=== PATIENT | female | born 1965 | race Caucasian/White ===

== ENCOUNTER 2017-07-21 16:44 | Observation (INO) | payer MEDICAID ==
[~2017-07-21] VITALS: Ht 152.4 cm; Wt 71.0 kg
[~2017-07-21 16:44] MED LIST: LISI40TA4 PO
[2017-07-21] MEDS ORDERED: LORazepam 2 mg/ml vial IV ONE (18:00)
[2017-07-21 18:16] LABS: ALANINE AMINOTRANSFERASE 36 U/L (12-78); ALBUMIN/GLOBULIN RATIO 1.2 (1.1-1.5); ALKALINE PHOSPHATASE 81 IU/L (46-116); ANION GAP 11 (8-16); ASPARTATE AMINO TRANSFERASE 19 U/L (10-37); BILIRUBIN,TOTAL 0.5 MG/DL (0.1-1.0); BLOOD UREA NITROGEN 13 MG/DL (7-18); BUN/CREATININE RATIO 15.9 (6.6-38.0); CALCIUM 9.3 MG/DL (8.5-10.1); CHLORIDE 105 MMOL/L (99-107); CREATININE 0.82 MG/DL (0.40-0.90); ETHANOL < 0.010 GM/DL (0.0-0.010); GLUCOSE 109 MG/DL (70-104); MAGNESIUM 2.1 MG/DL (1.5-2.4); POTASSIUM 3.2 MMOL/L (3.5-5.1); SODIUM 143 MMOL/L (135-145); TOTAL CARBON DIOXIDE 27.5 MMOL/L (24-32); TOTAL PROTEIN 7.4 G/DL (6.4-8.2); eGFR 73 ML/MIN
[2017-07-21 18:29] LABS: BASOPHILS % (AUTO) 0.4 % (0-1); EOSINOPHILS # (AUTO) 0.1 X10'3 (0-0.9); EOSINOPHILS % (AUTO) 2.1 % (0-6); HEMATOCRIT 35.5 % (35.0-45.0); HEMOGLOBIN 12.6 g/dl (12.0-16.0); LYMPHOCYTES # (AUTO) 1.3 X10'3 (1.1-4.8); LYMPHOCYTES % (AUTO) 21.6 % (21-51); MEAN CORPUSCULAR HEMOGLOBIN 30.4 PG (27.0-31.0); MEAN CORPUSCULAR HGB CONC 35.5 % (33.0-36.5); MEAN CORPUSCULAR VOLUME 85.7 FL (78-98); MEAN PLATELET VOLUME 7.8 FL (7.4-10.4); MONOCYTES # (AUTO) 0.4 X10'3 (0-0.9); MONOCYTES % (AUTO) 5.8 % (2-12); NEUTROPHILS # (AUTO) 4.3 X10'3 (1.8-7.7); NEUTROPHILS % (AUTO) 70.1 % (42-75); PLATELET COUNT 195 X10'3 (140-440); RED BLOOD COUNT 4.14 X10'6 (4.20-5.60); WHITE BLOOD COUNT 6.2 X10'3 (4.5-11.0)
[2017-07-21] MEDS ORDERED: nitroGLYCERIN 0.4mg SUBLingual tab SL PRN ×2 (18:40→20:15)
[2017-07-21 19:48] LABS: URINE AMPHETAMINE SCREEN NEGATIVE (Neg); URINE BARBITUATE SCREEN NEGATIVE (Neg); URINE BENZODIAZEPINES SCREEN NEGATIVE (Neg); URINE CANNABINOID SCREEN NEGATIVE (Neg); URINE COCAINE SCREEN NEGATIVE (Neg); URINE METHADONE SCREEN NEGATIVE (Neg); URINE OPIATE SCREEN NEGATIVE (Neg); URINE PHENCYCLIDINE SCREEN NEGATIVE (Neg)
[2017-07-21] MEDS ORDERED: acetaminophen 325mg tablet PO PRN (20:10)
[2017-07-21] MEDS ORDERED: mag hydrox/Alum hydrox/simeth 30ml oral suspension PO PRN (20:10)
[2017-07-21] MEDS ORDERED: potassium Cl 20 mEq SR tablet PO PRN (20:10)
[2017-07-21] MEDS ORDERED: magnesium hydroxide 30ml (MOM) UD suspension PO PRN (20:10)
[2017-07-21] MEDS ORDERED: morphine 4 MG/ML inj SYRINge IV PRN (20:10)
[2017-07-21] MEDS ORDERED: ondansetron/PF 4mg/2ml inj IV PRN (20:10)
[2017-07-21] MEDS ORDERED: HYDROcodone/acetaminophen 5mg/325mg tablet PO PRN (20:10)
[2017-07-21] MEDS ORDERED: potassium Cl 40MEQ/NS 500ml 500 ML IV PRN ×2 (20:10)
[2017-07-21] MEDS ORDERED: zolpidem 5mg tablet PO PRN (20:10)
[2017-07-21] MEDS ORDERED: CAFFEINE CITRATE 60 MG/3 ML injection vial IV PRN (20:15)
[2017-07-21] MEDS ORDERED: ketorolac tromethamine 15mg/ml inj. IV PRN (20:15)
[2017-07-21] MEDS ORDERED: metoprolol tartrate 1mg/ml inj IV PRN (20:15)
[2017-07-21 23:00] VITALS: BP 138/81
[2017-07-22] VITALS (9 sets, daily range): BP systolic 119–147; BP diastolic 57–79
[2017-07-22] MEDS: LORazepam 1 MG tablet PO PRN ×2 (05:10→11:02)
[2017-07-22 06:03] LABS: BASOPHILS % (AUTO) 0.4 % (0-1); EOSINOPHILS # (AUTO) 0.1 X10'3 (0-0.9); EOSINOPHILS % (AUTO) 2.8 % (0-6); HEMATOCRIT 34.9 % (35.0-45.0); HEMOGLOBIN 12.2 g/dl (12.0-16.0); LYMPHOCYTES # (AUTO) 1.4 X10'3 (1.1-4.8); LYMPHOCYTES % (AUTO) 28.8 % (21-51); MEAN CORPUSCULAR HEMOGLOBIN 30.3 PG (27.0-31.0); MEAN CORPUSCULAR VOLUME 86.5 FL (78-98); MEAN PLATELET VOLUME 7.8 FL (7.4-10.4); MONOCYTES # (AUTO) 0.4 X10'3 (0-0.9); MONOCYTES % (AUTO) 7.9 % (2-12); NEUTROPHILS % (AUTO) 60.1 % (42-75); PLATELET COUNT 181 X10'3 (140-440); RED BLOOD COUNT 4.04 X10'6 (4.20-5.60)
[2017-07-22 06:19] LABS: ALBUMIN 3.3 G/DL (3.4-5.0); ANION GAP 8 (8-16); BLOOD UREA NITROGEN 11 MG/DL (7-18); BUN/CREATININE RATIO 16.9 (6.6-38.0); CALCIUM 8.6 MG/DL (8.5-10.1); CHLORIDE 106 MMOL/L (99-107); CHOL/HDL RATIO 1.8 (0.00-4.99); CHOLESTEROL 169 MG/DL (0-200); CREATININE 0.65 MG/DL (0.40-0.90); GLUCOSE 109 MG/DL (70-104); HDL CHOLESTEROL 93 MG/DL (35-60); LDL CHOLESTEROL 62 MG/DL (50-100); POTASSIUM 3.3 MMOL/L (3.5-5.1); SODIUM 142 MMOL/L (135-145); TOTAL CARBON DIOXIDE 28.4 MMOL/L (24-32); TRIGLYCERIDES 70 MG/DL (20-135); eGFR > 90 ML/MIN
[2017-07-22] MEDS ORDERED: regadenoson 0.4mg/5ml syringe IV ONE ×2 (07:00→08:46)
[2017-07-22] MEDS: potassium Cl 20 mEq SR tablet PO PRN ×2 (07:47→11:02)
[2017-07-22] MEDS ORDERED: K and/or MAG REPLACEMENT MC SCH (08:00)
[2017-07-22] MEDS ORDERED: lisinopril 10 MG tablet PO SCH (08:00)
[2017-07-22] MEDS ORDERED: CAFFEINE CITRATE 60 MG/3 ML injection vial IV ONE (08:46)
[2017-07-22] MEDS ORDERED: LISI10TA4 (09:33)
[2017-07-22] MEDS ORDERED: potassium Cl 20 mEq SR tablet PO STA (13:14)
== END 2017-07-22 15:16 | disposition home or self-care (01) ==
LOC: ER 16:44 → ED HOLD 20:10 → EDBEDREQ 22:22 → SUR 3N 22:50
PROVIDERS: ADMIT Family Medicine; ATTEND Family Medicine
DX: R07.89 Other chest pain (principal); E87.6 Hypokalemia; F43.22 Adjustment disorder with anxiety; F43.21 Adjustment disorder with depressed mood; I10 Essential (primary) hypertension; Z63.4 Disappearance and death of family member
CPT/HCPCS: 36415; 71045; 78452; 80048; 80053; 80061; 80305; 80320; 83735; 83880; 84484; 85025; 87070; 93005; 93017; 96374; 99285; A9500; G0378; J2060

== ENCOUNTER 2017-10-23 23:28 | Emergency (ER) | payer MEDICAID ==
[~2017-10-23] VITALS: Ht 165.1 cm; Wt 72.7 kg
[~2017-10-23 23:28] MED LIST changes: +LISI10TA4; -LISI40TA4 PO
[2017-10-23] MEDS ORDERED: diphenhydrAMINE 50 mg/ml inj IV ONE (23:35)
[2017-10-24] MEDS ORDERED: ondansetron/PF 4mg/2ml inj IV STA (00:57)
[2017-10-24 01:04] VITALS: BP 120/72
== END 2017-10-24 01:05 | disposition home or self-care (01) ==
LOC: ER 23:28
DX: R06.02 Shortness of breath (principal); R22.0 Localized swelling, mass and lump, head; T42.4X5A Adverse effect of benzodiazepines, initial encounter; I10 Essential (primary) hypertension; Z98.890 Other specified postprocedural states; Z79.899 Other long term (current) drug therapy; Y92.89 Other specified places as the place of occurrence of the external cause
CPT/HCPCS: 96374; 96375; 99284; J1200; J2405